=== PATIENT | male | born 1950 | race African-American/Black ===

== ENCOUNTER 2017-06-02 19:04 | Observation (INO) ==
[2017-06-02] MEDS ORDERED: NITROGLYCERIN SL 0.4 MG TABLET SL STA (20:04)
[2017-06-02 20:21] LABS: Basophils % 0.3 % (0.0-0.8); Eosinophils # 0.1 10*3/uL (0.0-0.87); Eosinophils % 1.1 % (0.00-10.9); Hematocrit 39.6 VOL% (42.0-52.0); Immature Granulocytes % 0.2 %; Immature Granulocytes Absolute 0.01 #; Lymphocytes # 2.2 10*3/uL (1.4-4.0); Lymphocytes % 35.5 % (21.2-54.2); Mean Corpuscular HGB Conc 35.4 GM/DL (32-36); Mean Corpuscular Hemoglobin 34 PG (27-34); Mean Corpuscular Volume 97.3 FL (87-102); Mean Platelet Volume 11.2 FL (9.6-12.0); Monocytes # 0.6 10*3/uL (0.11-0.8); Monocytes % 9.1 % (1.7-12.7); Neutrophils # 3.4 10*3/uL (1.4-7.4); Neutrophils % 53.8 % (38.7-73.9); Platelet Count 223 T/CUMM (130-400); Red Blood Count 4.07 MC/CUMM (3.8-5.5); Red Cell Distribution Width 13.2 % (9.3-17.3); White Blood Count 6.3 T/CUMM (4-12)
--- NOTE | 2017-06-02 20:25 | CT Report ---
CT brain Indication: Headache Comparison: None available Technique: Axial CT imaging of the brain is performed without contrast with 3 mm increments. Findings: No evidence of hemorrhage, mass mass effect midline shift or acute infarct seen. The brain parenchyma attenuation and differentiation appears within normal limits. The ventricles and cisterns are normal in caliber. No cranial or skull base abnormality is identified. Impression: No evidence of abnormality demonstrated. This CT exam was performed using one or more the following dose reduction techniques: Automated exposure control, adjustment of the MA and/or KV according to patient size, or use of iterative reconstruction technique. PROCEDURE INTERPRETED AT [facility] DEPARTMENT OF RADIOLOGY Final Report Signed by: Dr. Papito Sheriff
[2017-06-02 20:27] LABS: Alanine Aminotransferase 21 U/L (16-61); Albumin 3.8 G/DL (3.4-5.0); Alkaline Phosphatase 75 U/L (45-117); Aspartate Amino Transferase 16 U/L (0-37); Blood Urea Nitrogen 11 MG/DL (7-18); Calcium 9.1 MG/DL (8.5-10.1); Glucose 111 MG/DL (74-106); Osmolality,Calculated 276.5 MOS/KG (273-304); Potassium 3.9 MMOL/L (3.5-5.1); Sodium 139 MMOL/L (136-145); Total Protein 7.2 G/DL (6.4-8.3); Troponin I Only < 0.015 NG/ML (0.00-0.045)
--- NOTE | 2017-06-02 20:31 | XRay Report ---
XR chest 1V portable Indication: Chest pain Comparison: None available Findings: The heart and mediastinum are normal in size and configuration. The pulmonary vascularity is normal in caliber. No lung infiltrates, effusions, pneumothorax or other abnormality is demonstrated. Impression: Normal chest x-ray PROCEDURE INTERPRETED AT [facility] DEPARTMENT OF RADIOLOGY Final Report Signed by: Dr. Papito Sheriff
[2017-06-02 20:34] LABS: INR 1.1; PT Patient Result 11.1 SECS; Partial Thromboplastin Time 30.5 SECS (0-40)
[2017-06-02] MEDS ORDERED: NITROGLYCERIN SL 0.4 MG TABLET SL ONE (21:43)
--- NOTE | 2017-06-02 21:52 | Emergency Department Note ---
Arrival - Arrival Chief Complaint: Dizziness Stated Complaint: High BP ED Nursing Triage Note: C/O ELEVATED BLOOD PRESSURE WITH ONSET LAST NIGHT. PT ALSO STATES HE IS DIZZY. PT ALSO C/O CHEST PAIN WHICH PT STATES HE HAS BEEN COUGHING. Mode of Arrival: Ambulatory Limitations: No Limitations Source: Patient, Family, RN Notes Reviewed Time Seen by Provider: 06/02/17 19:38 - History of Present Illness HPI Narrative: The patient complains of an elevated blood pressure and headache since last night. He also complains of some mild substernal chest pain off and on and he has had some clear rhinorrhea and cough. No nausea, vomiting, shortness of breath or diaphoresis. He has no known history of hypertension or heart disease. No history of diabetes or hyperlipidemia. He is a smoker. Allergies/Adverse Reactions: Allergies Allergy/AdvReac Type Severity Reaction Status Date / Time No Known Allergies Allergy Unverified 06/02/17 19:08 Home Medications: Home Medications Medication Instructions Recorded Confirmed Type No Known Home Medications [No 06/02/17 06/02/17 History Known Home Medications] Review of System - Review of System 12 point system: reviewed and no additional remarkable complaints except as stated - Review of System Constitutional: Absent: fever Head/Ears/Nose/Throat: Present: nasal drainage. Absent: sore throat Respiratory: Present: cough. Absent: respiratory distress, wheezing Cardiovascular: Present: chest pain. Absent: palpitations, dyspnea on exertion , orthopnea, edema, syncope Gastrointestinal: Absent: abdominal pain, nausea, vomiting Musculoskeletal: Absent: back pain Neurological: Present: headache. Absent: weakness, numbness, paresthesias, confusion, abnormal gait, vertigo Medical,Surgical,& Family Hx - Medical History Medical History: noncontributory - Surgical History HEENT Surgeries: Surgical HX of: Eye Surgery Abdominal Surgeries: Surgical HX of: Hernia Repair - Family History Family History: Reports;: Family Cancer - Social History Smoking Status: Current every day smoker Frequency of Alcohol Use: Occasionally Type of Drug Use: Marijuana Exam Physical Examination: GENERAL: Alert. No acute distress. HEENT: Normocephalic and atraumatic. Pupil defect status post cataract surgery. There is no nasal drainage. No pharyngeal erythema or exudate. NECK: Normal inspection. Supple. No lymphadenopathy or meningismus. LUNGS: No respiratory distress. Clear to auscultation bilaterally, no wheezes, rales or rhonchi. HEART: Regular rate and rhythm. Chest: Nontender. ABDOMEN: Soft, nontender and nondistended with normoactive bowel sounds. BACK: Normal inspection. SKIN: Color normal. Warm and dry. EXTREMITIES: Nontender. Normal range of motion. No pedal edema. NEUROLOGICAL/PSYCHIATRIC: Alert and oriented -3 with normal mood and affect. Cranial nerves normal. No motor or sensory deficit. Vital Signs: Vital Signs Temperature 97.9 F 06/02/17 19:08 Pulse Rate 78 06/02/17 19:20 Respiratory Rate 20 06/02/17 19:20 Blood Pressure 189/108 06/02/17 19:20 O2 Sat by Pulse Oximetry 97 06/02/17 19:20 Course - Reevaluation(s) Reevaluation #1: The patient feels better after the sublingual nitroglycerin. No chest pain at present. Headache is better but his blood pressure continues to run in the 180s over 90s. His heart rate remains in the mid 40s. I think he will need admission for observation and cardiology consultation. I discussed patient with the hospitalist service who will see him and admit. Time: 21:56 Results - Labs CBC & BMP: 06/02/17 19:28 06/02/17 19:28 Lab Results: I have reviewed the patients labs Disposition Clinical Impression: Bradycardia, Hypertension, Chest pain Case discussed with: patient, patient's family Disposition: Still a Patient Condition: Stable Time of Disposition: 21:57
[2017-06-02] MEDS ORDERED: MORPHINE 2 MG/1 ML SYRINGE IV PRN (23:31)
[2017-06-02] MEDS ORDERED: ONDANSETRON 4 MG/2 ML VIAL IV PRN (23:31)
[2017-06-02] MEDS ORDERED: NITROGLYCERIN SL 0.4 MG TABLET SL PRN (23:34)
--- NOTE | 2017-06-03 00:10 | Hospitalist History & Physical ---
Assessment and Plan (1) Chest pain Status: Acute Assessment and plan: Admit to hospitalist services. Consult cardiology. Initial cardiac enzymes were negative; follow serial enzymes and EKGs. Started on Losartan-HCTZ 50-12.5 mg PO daily. Hydralazine 10 mg IV Q6 PRN. Nitroglycerine 0.4 mg SL Q5 minutes PRN. ASA 325 mg PO x 1 given in ED; Continue with ASA 81 mg PO daily. TSH/Free T4, Lipid panel, A1c, and magnesium in a.m. Repeat CMP in a.m. Current Visit: Yes (2) Bradycardia Status: Acute Assessment and plan: Monitored bed. Check TSH/Free T4 in a.m. Current Visit: Yes (3) Hypertension Status: Acute Assessment and plan: Takes on medications for hypertension. Start Losartan-HCTZ 50-12.5 mg PO daily. Hydralazine 10 mg IV Q6 PRN. Nitroglycerine 0.4 mg SL Q5 minutes PRN. Monitor. Current Visit: Yes (4) DVT prophylaxis Status: Acute Assessment and plan: Lovenox 40 mg SQ daily. Current Visit: Yes History of Present Illness Chief complaint: Chest pain; hypertension; headache History of present illness: Mr. Childers is a 66 year old male with no past medical history who presented to the ED tonight with complaints of elevated blood pressure, headache and substernal chest pain x 24 hours. Mr. Childers reports that he had a severe, throbbing headache and mild substernal chest pain since last night. When a family member checked his BP, it was 201/99. He denies any associated nausea, vomiting, shortness of breath, or dizziness. He denies previous episodes of chest pain, including during activity. He takes no medications and denies a history of hypertension. He is a 2 cigar per day smoker, daily beer drinker, and a 1 joint per day marijuana smoker. In the ED, initial cardiac enzymes were negative and all other labs were unremarkable, however, he has been bradycardic in the 40s throughout the ED stay. CXR was negative for any acute process. He was given one dose of nitroglycerine SL and is currently free of chest pain and headache. He remains hypertensive in the 180s/90s and bradycardic. Hospitalist services were consulted, and the patient will be admitted for further evaluation and treatment. He takes no home medications. This patient is a full code. Home Medications Medication Instructions Recorded Confirmed Type No Known Home Medications [No 06/02/17 06/02/17 History Known Home Medications] Allergies Allergy/AdvReac Type Severity Reaction Status Date / Time No Known Allergies Allergy Unverified 06/02/17 19:08 Medical,Surgical,& Family Hx - Medical History Medical History: noncontributory (Past medical history was discussed with the patient. He denies any past medical history.) - Surgical History HEENT Surgeries: Surgical HX of: Eye Surgery Abdominal Surgeries: Surgical HX of: Hernia Repair - Family History Family History: Reports;: Family Cancer - Social History Smoking Status: Current every day smoker (2 cigars per day) Have you smoked in the last 12 months: Yes Time spent discussing smoking cessation with patient: 3 to 10 minutes (3 minutes were spent discussing smoking cessation with the patient.) Frequency of Alcohol Use: Frequently (Drinks beer daily.) Type of Drug Use: Marijuana Marital Status: Lives With:: Alone Functional capacity: independent ambulation 12 point system: reviewed and no additional remarkable complaints except as stated - Constitutional Constitutional: Absent: chills, fever(s), malaise, weakness - EENT Eyes: Absent: blurry vision, diplopia, loss of vision Ears: Absent: decreased hearing, ear discharge, ear pain Nose, mouth and throat: Present: headache(s). Absent: nasal congestion, sore throat - Cardiovascular Cardiovascular: Present: chest pain at rest. Absent: diaphoresis, dyspnea, dyspnea on exertion, edema, radiating jaw, neck or arm pain, orthopnea, palpitations - Respiratory Respiratory: Absent: dyspnea, dyspnea on exertion, wheezing - Gastrointestinal Gastrointestinal: Absent: abdominal pain, constipation, diarrhea, nausea, vomiting - Genitourinary Genitourinary: Absent: dysuria, flank pain, urinary frequency - Musculoskeletal Musculoskeletal: Absent: arthralgias, joint swelling, muscle weakness, myalgias - Neurological Neurological: Absent: confusion, dizziness, numbness, paresthesias, syncope - Psychiatric Psychiatric: Absent: anxiety, depression - Endocrine Endocrine: Absent: cold intolerance, polydipsia, polyphagia, polyuria - Hematologic/Lymphatic Hematologic/Lymphatic: Absent: easy bleeding, easy bruising Exam - Constitutional Vitals: Period Temp Pulse Resp BP Sys/Ramirez Pulse Ox Last 24 Hr 97.9 F 47-78 18-20 183-189/95-108 97-98 Exam: Constitutional System: Afebrile. Awake, alert and oriented x 3. No distress. No tremulousness. Head: Normocephalic, atraumatic. Ears, Nose and Throat System: No pain or tenderness. No epistaxis or discharge Eyes System: Pupils equal, round, and reactive. Extraocular muscles intact. Neck: Supple, without adenopathy, No jugular venous distention. No thyromegaly, neck mass, or prior surgery apparent. Respiratory System: Inspiratory wheezing noted in right anterior salamanca; all other sal[place] CTA. Cardiovascular System: Heart with bradycardic rate and regular rhythm. No murmur. GI System: Abdomen soft, nontender. Normo active bowel sounds present. Musculoskeletal System: Limbs with no pedal edema. Full distal pulses. Normal capillary refill. Neurological System: No discernable sensory deficit. No aphasia Psychiatric System: Conversation is rational Results - Labs CBC & BMP: 06/02/17 19:28 06/02/17 19:28 Lab Results: I have reviewed the past 24 hour labs - Diagnostic Findings Procedure: Chest x-ray: report reviewed by me
[2017-06-03] MEDS ORDERED: ENOXAPARIN 40 MG/0.4 ML SYRINGE ONE (00:36)
[2017-06-03] MEDS: ENOXAPARIN 40 MG/0.4 ML SYRINGE SUBCUT SCH ×2 (00:40→23:41)
[2017-06-03] MEDS: hydrALAZINE 20 MG/1 ML VIAL IV PRN ×2 (01:16→21:10)
--- NOTE | 2017-06-03 03:08 | Order Completion Report ---
See report scanned to EMR
[2017-06-03 04:24] LABS: Albumin 3.6 G/DL (3.4-5.0); Bilirubin,Total 0.7 MG/DL (0.2-1.0); Calcium 9.1 MG/DL (8.5-10.1); Magnesium 2.2 MG/DL (1.8-2.4); Osmolality,Calculated 281.3 MOS/KG (273-304); Potassium 3.9 MMOL/L (3.5-5.1); Risk Ratio 2.75; VLDL CHOLESTEROL 17.8 MG/DL
--- NOTE | 2017-06-03 07:03 | Order Completion Report ---
See report scanned to EMR
--- NOTE | 2017-06-03 08:37 | Order Completion Report ---
See report scanned to EMR
[2017-06-03] MEDS: ASPIRIN EC 81 MG TABLET PO SCH (09:05)
[2017-06-03] MEDS: LOSARTAN/HCTZ 50-12.5 MG TABLET PO SCH (09:05)
[2017-06-03] MEDS: PANTOPRAZOLE 40 MG TABLET PO SCH (09:06)
[2017-06-03 11:03] LABS: Troponin I Only < 0.015 NG/ML (0.00-0.045)
--- NOTE | 2017-06-03 14:29 | Hospitalist Progress Note ---
Assessment and Plan (1) Bradycardia Status: Acute Assessment and plan: Patient remains asymptomatic Current Visit: Yes (2) Hypertension Status: Acute Assessment and plan: Continue BP medication Current Visit: Yes (3) Chest pain Status: Acute Assessment and plan: Patient is chest pain-free at this point Current Visit: Yes (4) DVT prophylaxis Status: Acute Assessment and plan: Continue continue Lovenox Current Visit: Yes Hospitalist: Subjective Interval history: Patient has been seen interviewed and examined chart has been reviewed. In the morning there was a repeat EKG is highly reflected to T-wave inversion in anterior leads with a change in axis. There is mention of for acute CA on EKG however patient was asymptomatic and her troponin is troponins are remaining flat. Of note that this patient has a profound bradycardia which is totally asymptomatic. At this point the patient is a is doing fine did come in to the hospital with complaints of chest pain and has not had any chest pain since. Cardiology is yet to see this patient. Exam - Constitutional Vitals: Period Temp Pulse Resp BP Sys/Ramirez Pulse Ox Last 24 Hr 97.3 F-98.9 F 43-78 16-20 130-192/74-108 97-100 General appearance: normal weight - Head Head exam: Present: normocephalic, atraumatic - Eye Eye exam: Present: EOMI Pupils: Present: LYDIA - Respiratory Respiratory exam: Present: clear to auscultation bilaterally - Cardiovascular Cardiovascular exam: Present: bradycardia (Sinus control) - GI/Abdominal GI/Abdominal exam: Present: normal bowel sounds, soft - Extremities Exam Extremities exam: Present: full ROM - Neurological Exam Neurological exam: Present: alert, oriented X3, CN II-XII intact - Psychiatric Psychiatric exam: Present: normal affect, normal mood - Skin Skin exam: Present: normal color, warm, dry Results - Labs CBC & BMP: 06/02/17 19:28 06/03/17 02:37 Lab Results: I have reviewed the past 24 hour labs (Troponins remain flat even after changing EKG)
--- NOTE | 2017-06-03 16:29 | Cardiology Consult Note ---
Assessment and Plan - Time spent with patient Time spent with patient: Greater than 30 minutes Time spent discussing smoking cessation with patient: 3 to 10 minutes (1) Claudication Status: Chronic Assessment and plan: Clinically and historically has claudication the lower extremities and has risk factors for such. He can be worked up for this as an outpatient and we can arrange for SHANNAN indexes and if abnormal carry out arterial Dopplers of lower extremities. Current Visit: Yes (2) Bradycardia Status: Acute Assessment and plan: Duration this is really unknown. Certainly his heart rates dropped to a sinus rate of 40 but he is asymptomatic with this he has had no prior history of syncope near syncope. This too can be follow-up as an outpatient. Current Visit: Yes (3) Hypertension Status: Acute Assessment and plan: Patient is now medications for this. He is continues as an outpatient followed up. He can follow-up on this along with his other medical issues. Current Visit: Yes (4) Chest pain Status: Acute Assessment and plan: Chest pain says be noncardiac. There is no evidence for acute ischemic event. This can be worked up as an outpatient with exercise SPECT study. Current Visit: Yes History of Present Illness - Data of Consult Patient: new to practice Consult date: 06/03/17 Requesting Physician: Wilbur Leyva - Consult Narrative Reason for consult: Chest pain, bradycardia History of present illness: Mr. Childers is a 66 year old male who stated that started Sunday afternoon that he began having chest pain was persistent until he was admitted to the hospital through the emergency room last night. He though also had a headache. On evaluation emergency room he has blood pressure was markedly elevated. He states he has a history of borderline hypertension. His exam was unremarkable and his ECG was unremarkable. His troponins were nondetectable. The patient gets older nitroglycerin and after this his blood pressure came down and his symptomatology of headache and chest pain improved and resolved eventually. It was noted that he was bradycardic. In review of his telemetry his heart rates have been from the lowest of heart rate of 40 to the low 50s. He is on no medications to cause bradycardia nor is he had a history of syncope or near syncope. His lab work is unremarkable including his thyroid i.e. TSH and T4 which are normal. Nondetectable troponins. His chemistries are unremarkable. His CBC is unremarkable. Since being admitted to the hospital he has been stable no symptomatology or complaints. It is interesting that he has claudication of bilateral lower legs with walking a significant difference distance. This resolves with rest. He is a smoker. He has been on no home medications. CC: Wilbur Leyva MD - Home Medications and Allergies Home Medications: Home Medications Medication Instructions Recorded Confirmed Type No Known Home Medications [No 06/02/17 06/02/17 History Known Home Medications] Allergies/Adverse Reactions: Allergies Allergy/AdvReac Type Severity Reaction Status Date / Time No Known Allergies Allergy Unverified 06/02/17 19:08 Review of systems: Constitutional: Denies anorexia, chills, fatigue, fever, frequent falls, night sweats, weight gain, weight loss Eyes: Denies visual changes or loss of vision Ears: Denies decreased hearing, vertigo Nose, mouth and throat: Denies dysphagia, epistaxis, headaches, neck pain, tongue swelling, Neck: Denies thyromegaly or masses. No stiffness. Cardiovascular: as per HPI Respiratory: Denies cough, dyspnea, hemoptysis, dyspnea on exertion, wheezing, snoring Gastrointestinal: Denies abdominal pain, constipation, dyspepsia, dysphagia, hematemesis, hematochezia, melena, nausea, vomiting Genitourinary: Denies dysuria, hematuria, nocturia Musculoskeletal: Denies arthralgias, joint swelling, muscle weakness, myalgias Neurological: denies abnormal gait, abnormal speech, confusion, convulsions, frequent falls, headaches, memory loss, syncope Psychiatric: Denies anxiety, confusion, depression Endocrine: Denies cold intolerance, fatigue, heat intolerance Hematologic/Lymphatic: Denies easy bleeding, easy bruising Dermatologic: Denies Rash, itching, shingles Medical,Surgical,& Family Hx - Medical History Medical History: noncontributory (Completely unremarkable past medical history.) Musculoskeletal: History of: Musculoskeletal Problems (broken fingers) - Surgical History HEENT Surgeries: Surgical HX of: Eye Surgery (cataracts) Abdominal Surgeries: Surgical HX of: Hernia Repair - Family History Family History: Reports;: Family Cancer - Social History Smoking Status: Current every day smoker Have you smoked in the last 12 months: Yes Time spent discussing smoking cessation with patient: 3 to 10 minutes Frequency of Alcohol Use: Frequently Type of Drug Use: Marijuana Marital Status: Lives With:: Alone Functional capacity: independent ambulation Physical Examination Vital Signs Temp Pulse Resp BP Pulse Ox 97.9 F 47 L 18 183/95 98 06/02/17 19:08 06/02/17 19:08 06/02/17 19:08 06/02/17 19:08 06/02/17 19:08 Exam: General appearance: normal weight, no acute distress Head exam: normal inspection, atraumatic Eye exam: Pupils are equal and reactive. EOMI. There is no trauma. Ear exam: Anatomically normal. Normal auditory acuity to conversation. Oral exam: No significant oral lesions. Neck exam: normal inspection no JVD. No carotid bruit. Trachea is in midline. Respiratory exam: clear to auscultation bilaterally posteriorly and anteriorly with good air movement. No rales, rhonchi or wheezes. Cardiovascular exam: regular rate and rhythm, no murmur or gallop or rub. No precordial lift. No bruits over the major arteries. Chest wall/torso: Anatomically normal. No tenderness, deformity Peripheral Pulses: 2+ upper extremity pulses, diminished pulses of the dorsalis pedis and posterior tibial bilaterally. GI/Abdominal exam: normal bowel sounds, soft and nontender, no abdominal bruits or pulsatile masses. Musculoskeletal/Extremities exam: normal inspection without edema or cyanosis. No deformities or trauma. Neurological exam: alert, oriented X3. There is no gross neurologic deficits. Psychiatric exam: normal affect, normal mood. Cognitive function is grossly intact. Skin exam: normal color, warm. No rashes or other skin lesions. Result/EKG - Labs CBC & BMP: 06/02/17 19:28 06/03/17 02:37 Lab Results: I have reviewed the past 24 hour labs Labs: Laboratory Results - last 24 hr 06/02/17 06/02/17 06/02/17 19:28 19:28 19:28 WBC 6.3 RBC 4.07 Hgb 14.0 Hct 39.6 L MCV 97.3 MCH 34 MCHC 35.4 RDW 13.2 Plt Count 223 MPV 11.2 Neut % (Auto) 53.8 Lymph % (Auto) 35.5 Phillips % (Auto) 9.1 Eos % (Auto) 1.1 Baso % (Auto) 0.3 Neut # (Auto) 3.4 Lymph # (Auto) 2.2 Phillips # (Auto) 0.6 Eos # (Auto) 0.1 Baso # (Auto) 0.0 Immature Gran % 0.2 Nucleated RBC % 0.0 Immature Gran # 0.01 Nucleated RBCs # 0.00 Immature Plt Fraction 0.0 INR 1.1 PT Patient/Control Mix 11.1 D-Dimer, Quantitative 0.6 Circ Anticoag PTT 30.5 Sodium 139 Potassium 3.9 Chloride 108 H Carbon Dioxide 24 Anion Gap 10.9 BUN 11 Creatinine 1.10 GFR Calculation 96 BUN/Creatinine Ratio 10.00 Glucose 111 H Hemoglobin A1c Calculated Osmolality 276.5 Calcium 9.1 Magnesium Total Bilirubin 0.40 AST 16 ALT 21 Alkaline Phosphatase 75 Total Creatine Kinase 129 CK-MB (CK-2) 1.1 Troponin I < 0.015 Total Protein 7.2 Albumin 3.8 Globulin 3.4 Albumin/Globulin Ratio 1.1 Triglycerides Cholesterol LDL Cholesterol VLDL Cholesterol HDL Cholesterol Heart Disease Risk Ratio Lipase Free T4 TSH 3rd Generation 06/02/17 06/03/17 06/03/17 19:28 02:37 02:37 WBC RBC Hgb Hct MCV MCH MCHC RDW Plt Count MPV Neut % (Auto) Lymph % (Auto) Phillips % (Auto) Eos % (Auto) Baso % (Auto) Neut # (Auto) Lymph # (Auto) Phillips # (Auto) Eos # (Auto) Baso # (Auto) Immature Gran % Nucleated RBC % Immature Gran # Nucleated RBCs # Immature Plt Fraction INR PT Patient/Control Mix D-Dimer, Quantitative Circ Anticoag PTT Sodium 141 Potassium 3.9 Chloride 106 Carbon Dioxide 26 Anion Gap 12.9 BUN 9 Creatinine 1.10 GFR Calculation 92 BUN/Creatinine Ratio 8.00 Glucose 127 H Hemoglobin A1c Calculated Osmolality 281.3 Calcium 9.1 Magnesium 2.2 Total Bilirubin 0.70 AST 18 ALT 20 Alkaline Phosphatase 72 Total Creatine Kinase CK-MB (CK-2) Troponin I < 0.015 Total Protein 7.0 Albumin 3.6 Globulin 3.4 Albumin/Globulin Ratio 1.0 L Triglycerides 89 Cholesterol 157 LDL Cholesterol 85.0 VLDL Cholesterol 17.8 HDL Cholesterol 57 Heart Disease Risk Ratio 2.75 Lipase 373.0 Free T4 TSH 3rd Generation 2.000 06/03/17 06/03/17 06/03/17 02:37 02:37 06:26 WBC RBC Hgb Hct MCV MCH MCHC RDW Plt Count MPV Neut % (Auto) Lymph % (Auto) Phillips % (Auto) Eos % (Auto) Baso % (Auto) Neut # (Auto) Lymph # (Auto) Phillips # (Auto) Eos # (Auto) Baso # (Auto) Immature Gran % Nucleated RBC % Immature Gran # Nucleated RBCs # Immature Plt Fraction INR PT Patient/Control Mix D-Dimer, Quantitative Circ Anticoag PTT Sodium Potassium Chloride Carbon Dioxide Anion Gap BUN Creatinine GFR Calculation BUN/Creatinine Ratio Glucose Hemoglobin A1c 5.4 Calculated Osmolality Calcium Magnesium Total Bilirubin AST ALT Alkaline Phosphatase Total Creatine Kinase CK-MB (CK-2) Troponin I < 0.015 Total Protein Albumin Globulin Albumin/Globulin Ratio Triglycerides Cholesterol LDL Cholesterol VLDL Cholesterol HDL Cholesterol Heart Disease Risk Ratio Lipase Free T4 0.98 TSH 3rd Generation 06/03/17 10:16 WBC RBC Hgb Hct MCV MCH MCHC RDW Plt Count MPV Neut % (Auto) Lymph % (Auto) Phillips % (Auto) Eos % (Auto) Baso % (Auto) Neut # (Auto) Lymph # (Auto) Phillips # (Auto) Eos # (Auto) Baso # (Auto) Immature Gran % Nucleated RBC % Immature Gran # Nucleated RBCs # Immature Plt Fraction INR PT Patient/Control Mix D-Dimer, Quantitative Circ Anticoag PTT Sodium Potassium Chloride Carbon Dioxide Anion Gap BUN Creatinine GFR Calculation BUN/Creatinine Ratio Glucose Hemoglobin A1c Calculated Osmolality Calcium Magnesium Total Bilirubin AST ALT Alkaline Phosphatase Total Creatine Kinase 104 CK-MB (CK-2) < 1.0 Troponin I < 0.015 Total Protein Albumin Globulin Albumin/Globulin Ratio Triglycerides Cholesterol LDL Cholesterol VLDL Cholesterol HDL Cholesterol Heart Disease Risk Ratio Lipase Free T4 TSH 3rd Generation - Impressions Impressions: ECG was sinus rhythm without any acute changes. Specialty Discharge - Follow Up or Referrals Follow up with: Alejandro Antonio MD [Physician] - (Make patient a appointment in my office to have 48 hour Holter, ABIs with arterial Dopplers of lower extremities, exercise SPECT and then follow-up with me 1 week after the above studies are complete.)
--- NOTE | 2017-06-03 19:25 | Order Completion Report ---
See report scanned to EMR
[2017-06-04] MEDS: LOSARTAN/HCTZ 50-12.5 MG TABLET PO SCH (08:50)
[2017-06-04] MEDS: ASPIRIN EC 81 MG TABLET PO SCH (08:50)
[2017-06-04] MEDS: PANTOPRAZOLE 40 MG TABLET PO SCH (08:50)
--- NOTE | 2017-06-04 10:28 | Discharge Summary ---
Hospital Course - Hospital Course Hospital Course: This is a 66-year-old male that presented to the ED at [facility] on the night of June 02, 2017 for the evaluation of chest pain, elevated blood pressure, headache. The patient reported a medical history significant for alcohol abuse, nicotine addiction, and cannabis abuse. He reported a surgical history significant for eye surgery and hernia repair. The patient reported the onset of symptoms 24 hours prior to presentation. He reported that he had a gradual onset of a headache and chest pain that worsened with progression of time. A family member who was present at the time, checked the patient's blood pressure which was noted at 201/99. The patient described the pain as mild and isolated to his mid substernal area however, denied vomiting, nausea, shortness of breath, or diaphoresis. After much encouragement from his family, the patient decided to present to the ED for further evaluation. The patient was assessed at the time of ED presentation. The patient was noted to be grossly hypertensive with a blood pressure noted at 189/108. The chest pain protocol was initiated at the time of presentation. Labs were obtained which were significant for hematocrit 39.6, troponin less than 0.015, chloride 108, and glucose 111. CT head was essentially unremarkable for any evidence of acute intracranial abnormality. The patient was subsequently admitted to the hospitalist service for continuation of care. A full cardiac workup was ordered at the time of admission. The patient was started on multiple antihypertensive and platelet aggregation agents. A cardiology consultation was requested. The patient was evaluated and recommendations were given. Cardiac enzymes were essentially unremarkable for any acute myocardial injury. The patient's condition gradually improved. The patient's condition is stable. He has not experienced any significant overnight events. 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 Diagnosis - Discharge Diagnosis (1) Bradycardia Status: Acute (2) Hypertension Status: Acute (3) Chest pain Status: Acute (4) DVT prophylaxis Status: Acute Specialty Discharge - Follow Up or Referrals Follow up with: Alejandro Antonio MD [Physician] - (Make patient a appointment in my office to have 48 hour Holter, ABIs with arterial Dopplers of lower extremities, exercise SPECT and then follow-up with me 1 week after the above studies are complete.) Discharge Plan - Discharge Data Disposition: Disch To Home/Self Care Condition at Discharge: Stable Discharge Diet: heart healthy Activity: increase activity as tolerated Hygiene: no restrictions Weight Bearing at Discharge: full weight bearing Contact your physician if you experience:: Redness or swelling, Shortness of breath, pain uncontrolled by pain medications - Discharge Medications New Aspirin EC Tab 81 mg PO DAILY #30 tablet Losartan/Hctz 50-12.5 [Hyzaar 50-12.5] 1 tablet PO DAILY #30 tablet Pantoprazole Tab [Protonix Tab] 40 mg PO DAILY #30 tablet Nitroglycerin Sl Tab [Nitrostat] 0.4 mg SL Q5M PRN #30 tablet PRN Reason: Chest Pain - Follow Up or Referral Follow Up: Alejandro Antonio MD [Physician] - (Make patient a appointment in my office to have 48 hour Holter, ABIs with arterial Dopplers of lower extremities, exercise SPECT and then follow-up with me 1 week after the above studies are complete.) - Forms/Instructions Instructions: Hypertension (DC) Exam - Constitutional Vitals: Period Temp Pulse Resp BP Sys/Ramirez Pulse Ox Last 24 Hr 97.6 F-98.4 F 43-80 16-18 135-193/76-88 93-99 General appearance: normal weight - Head Head exam: Present: normocephalic, atraumatic - Eye Eye exam: Present: EOMI Pupils: Present: LYDIA - ENT ENT exam: Present: normal exam - Neck Neck exam: Present: normal inspection - Respiratory Respiratory exam: Present: clear to auscultation bilaterally - Cardiovascular Cardiovascular exam: Present: bradycardia (Sinus control, asymptomatic) - GI/Abdominal GI/Abdominal exam: Present: normal bowel sounds, soft - Extremities Exam Extremities exam: Present: full ROM - Back Exam Back exam: Present: normal inspection - Neurological Exam Neurological exam: Present: alert, oriented X3, CN II-XII intact - Psychiatric Psychiatric exam: Present: normal affect, normal mood - Skin Skin exam: Present: normal color, warm, dry Discharge Results Labs on day of discharge: Labs from last 24 hours 06/03/17 10:16 Total Creatine Kinase 104 CK-MB (CK-2) < 1.0 Troponin I < 0.015 DS: Provider Date of admission: 06/02/17 23:29 Primary care physician: . No PCP Attending physician on admission: Ty Morataya MD Consults: 06/02/17 23:31 Consult to Physician [CONS] Routine Comment: Chest pain Consulting Provider: Alejandro Antonio Person Notified: Ilsa Date Notified: 06/03/17 Time Notified: 07:58 Discharging clinician: Wilbur Leyva MD
[2017-06-04 11:49] VITALS: BP 147/75
== END 2017-06-04 12:21 | disposition home or self-care (01) ==
LOC: EDBD → N.ED 19:04 → N.EDINP 19:04 → SUATTDRO 23:29 → N.5E 06-03 00:40
PROVIDERS: ADMIT Internal Medicine; ATTEND Internal Medicine Infectious Disease